=== PATIENT | male | born 1985 | race Caucasian/White ===

== ENCOUNTER 2017-04-23 12:26 | Emergency (ER) | payer BC, OTHER ==
[~2017-04-23 12:26] MED LIST: CEPH500C3 PO; DICL75 PO; HYDR-3533 PO
[2017-04-23 12:31] VITALS: BP 116/59; PULSE 66; RESP 20; TEMP 98.2; O2SAT 98
--- NOTE | 2017-04-23 13:25 | PD ---
HPI Chief Complaint: Back/ Neck Pain or Injury Time Seen by Provider: 13:07 Travel History International Travel<30 days: No Contact w/Intl Traveler<30days: No Traveled to known affect area: No History of Present Illness HPI 31 -year-old male presents emergency department for evaluation of low back pain radiating down into the leg 4 days. Patient reports the pain began after he went off shore fishing. He denies specific injury. Denies fever, chills, incontinence, saddle anesthesia, numbness/weakness/tingling in the extremity. Pain is worse with movement and relieved with rest. He was seen earlier today at a local urgent care clinic and given an injection of Toradol. He was prescribed Flexeril and Motrin which he has not filled. He presented to emergency department for evaluation because his pain persist in spite of Toradol. [facility] Past Medical History Medical History: Denies Significant Hx Diminished Hearing: No ?: Not Past Surgical History Appendectomy: Yes Social History Alcohol Use: Yes (weekends) Tobacco Use: Yes (1 PPD) Substance Use: No Allergies-Medications (Allergen,Severity, Reaction): Coded Allergies: No Known Allergies (Verified , 02/07/15) Reported Meds & Prescriptions Reported Meds & Active Scripts Active Lortab 5 mg/325 mg (Hydrocodone/Acetaminophen 5 mg/325 mg) 1 Tab 1 Tab PO Q6H PRN Diclofenac Sodium 75 Mg Tab 75 Mg PO BID PRN Keflex (Cephalexin Monohydrate) 500 Mg Cap 500 Mg PO BID 7 Days Review of Systems Except as stated in HPI: all other systems reviewed are Neg General / Constitutional: No: Fever Physical Exam Narrative GENERAL: Well-nourished, well-developed patient. SKIN: Focused skin assessment warm/dry. CARDIOVASCULAR: Regular rate and rhythm without murmurs, gallops, or rubs. RESPIRATORY: Breath sounds equal bilaterally. No accessory muscle use. GASTROINTESTINAL: Abdomen soft, non-tender, nondistended. MUSCULOSKELETAL: No cyanosis, or edema. 5 out of 5 strength in lower extremities. 2+ DTRs. Normal sensation. Dorsiflex and plantarflex intact. BACK: Without obvious deformity. No CVA tenderness. No midline spine tenderness. Tender to palpation over the left SI joint and buttocks. Data Data Last Documented VS Vital Signs Date Time Temp Pulse Resp B/P (MAP) Pulse Ox O2 Delivery O2 Flow Rate FiO2 10/4/17 12:31 98.2 66 20 116/59 (66) 98 [facility] Medical Decision Making Medical Screen Exam Complete: Yes Emergency Medical Condition: Yes Differential Diagnosis Lumbar strain, sciatica, herniated disc Narrative Course 31-year-old male presents emergency department for evaluation of left low back pain radiating down into the left leg has 4 days. Patient was seen earlier today in urgent care clinic and given a shot of Toradol. He reports his symptoms have persisted since prompting his visit to the ER. On exam patient has tenderness over the left SI joint and into the buttocks. He has a normal neurologic exam. We'll sensation and range of motion of the lower extremities. Flexion and twisting of the back because pain. He has no saddle anesthesia, incontinence. Patient be given a shot of Norflex and instructed to take the Motrin and Flexeril as prescribed by the urgent care clinic. Patient verbalizes understanding and agrees to plan Diagnosis Primary Impression: Sciatica Qualified Codes: M54.32 - Sciatica, left side Referrals: [facility] Departure Forms: Tests/Procedures, Work Release Enter return to work date: Apr 26, 2017 Disposition: 01 DISCHARGE HOME Condition: Stable [place] Apr 23, 2017 13:25
[2017-04-23] MEDS ORDERED: ORPHENADRINE INJ 60 MG/2 ML AMP IM ONE (13:30)
== END 2017-04-23 14:15 | disposition home or self-care (01) ==
LOC: PHED 12:26
DX: M54.42 Lumbago with sciatica, left side (principal); F17.200 Nicotine dependence, unspecified, uncomplicated
CPT/HCPCS: 96372; 99284; J2360

== ENCOUNTER 2017-05-09 00:36 | Emergency (ER) | payer OTHER ==
[~2017-05-09] VITALS: Ht 180.3 cm; Wt 64.0 kg
[2017-05-09 00:41] VITALS: BP 127/81; PULSE 74; RESP 18; TEMP 98.4; O2SAT 98
--- NOTE | 2017-05-09 02:40 | RADRPT ---
EXAM DATE/TIME: 05/09/2017 02:13 [place] COMPARISON: No previous studies available for comparison. INDICATIONS : Left hip pain for 3 weeks with no known injury MEDICAL HISTORY : None. SURGICAL HISTORY : None. ENCOUNTER: Initial ACUITY: 3 weeks PAIN SCORE: 10/10 LOCATION: Left entire hip FINDINGS: Examination of the left hip was performed with AP Pelvis. The primary and secondary trabecular patte rn of the femoral neck is intact. The hip joint is of normal width without significant sclerosis or bony hypertrophy. The acetabulum is grossly intact. CONCLUSION: No acute fracture. Dwight Sewell MD on May 09, 2017 at 2:38 Board Certified Radiologist. This report was verified electronically.
[2017-05-09] MEDS ORDERED: PERC5TAB12 PO (02:55)
[2017-05-09] MEDS ORDERED: PRED50 PO (02:55)
--- NOTE | 2017-05-09 02:57 | PD ---
HPI Chief Complaint: Musculoskeletal Complaint Time Seen by Provider: 02:02 Travel History International Travel<30 days: No Contact w/Intl Traveler<30days: No Traveled to known affect area: No History of Present Illness HPI The patient is a 31-year-old male that complains of left hip pain since about the third of this month. He did have some back pain that was treated by a chiropractor and the back pain resolved. He has pain on his left greater trochanteric area now which is severe. He has been using Motrin 800 mg 3 times a day for over a week. He is put both ice and heat on it without relief. He denies any injury to the area. He cannot walk and has been missing work. 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 He no longer has any back pain and he doesn't have any radiation of pain from the back. He states he has some tendon tightness/spasms on the muscles that attach to the left greater trochanter. He denies any fever/ chills. PFSH Past Medical History Diminished Hearing: No Tetanus Vaccination: < 5 Years Influenza Vaccination: No Past Surgical History Appendectomy: Yes Social History Alcohol Use: Yes (weekends) Tobacco Use: Yes (1 PPD) Substance Use: No Allergies-Medications (Allergen,Severity, Reaction): Coded Allergies: No Known Allergies (Verified , 05/09/17) Reported Meds & Prescriptions Reported Meds & Active Scripts Active No Active Prescriptions or Reported Medications Review of Systems Except as stated in HPI: all other systems reviewed are Neg Physical Exam Narrative GENERAL: Well-nourished, well-developed patient in moderate apparent distress with his left hip discomfort. His vital signs are normal.. SKIN: Focused skin assessment warm/dry. HEAD: Normocephalic. EYES: No scleral icterus. No injection or drainage. NECK: Supple, trachea midline. No JVD or lymphadenopathy. CARDIOVASCULAR: Regular rate and rhythm without murmurs, gallops, or rubs. RESPIRATORY: Breath sounds equal bilaterally. No accessory muscle use. GASTROINTESTINAL: Abdomen soft, non-tender, nondistended. MUSCULOSKELETAL: No cyanosis, or edema. There is tenderness at and slightly distal to the left greater trochanter. This appears to be in the area of the trochanteric bursa. He has exquisite tenderness on this area but there is no redness, heat over the area. There is no fluctuance over the area. He also has some slight tenderness over the hamstring muscles just above the left knee. BACK: Nontender without obvious deformity. No CVA tenderness. Data Data Last Documented VS Vital Signs Date Time Temp Pulse Resp B/P (MAP) Pulse Ox O2 Delivery O2 Flow Rate FiO2 05/09/17 01:15 74 18 05/09/17 00:41 98.4 127/81 (96) 98 Orders Orders Hip, Uni(Ap&Lat) W Ap Pelvis (05/09/17 02:02) MDM Medical Decision Making Medical Screen Exam Complete: Yes Emergency Medical Condition: Yes Medical Record Reviewed: Yes Differential Diagnosis Trochanteric bursitis, osteomyelitis, stress fracture-highly unlikely, insertional tendinitis Narrative Course The patient appears to have a left trochanteric bursitis. He is already tried Motrin without success. We will try prednisone on a tapered course over 8 days. He needs to follow-up with an orthopedic physician. Diagnosis Primary Impression: Trochanteric bursitis, left hip Additional Instructions: The prednisone is one tablet twice daily for 4 days followed by one tablet daily for 4 days. Do not drink alcohol or drive on the Percocet 5. Follow-up with an orthopedic physician as soon as possible. Med/Other Pt SpecificInfo: Prescription(s) given Scripts Oxycodone-Acetaminophen (Percocet) 5-325 mg Tab 1 TAB PO Q4H Y for PAIN, #15 TAB 0 Refills Prov: Nas Gomez MD 05/09/17 Prednisone (Prednisone) 50 Mg Tab 50 MG PO BID for X 4 days than one daily X 4 da, #12 TAB 0 Refills Prov: Nas Gomez MD 05/09/17 Disposition: 01 DISCHARGE HOME Condition: Stable Nas Gomez MD May 09, 2017 02:56
[2017-05-09] MEDS ORDERED: KETOROLAC TROMETHAMINE 60 MG/2 ML (IM) VIAL IM ONE (03:00)
[2017-05-09] MEDS ORDERED: oxyCODONE/ACETAMINOPHEN 7.5 MG/325 MG TAB PO ONE (03:00)
[2017-05-09 03:11] VITALS: BP 120/77; PULSE 72; RESP 18; O2SAT 98
== END 2017-05-09 03:16 | disposition home or self-care (01) ==
LOC: PHED 00:36
DX: M70.62 Trochanteric bursitis, left hip (principal); F17.210 Nicotine dependence, cigarettes, uncomplicated
CPT/HCPCS: 73502; 96372; 99284; J1885

== ENCOUNTER 2017-08-27 10:10 | Emergency (ER) | payer OTHER ==
[~2017-08-27] VITALS: Ht 182.9 cm; Wt 67.0 kg
[~2017-08-27 10:10] MED LIST changes: -CEPH500C3 PO; -DICL75 PO; -HYDR-3533 PO; +PERC5TAB12 PO; +PRED50 PO
[2017-08-27 10:14] VITALS: BP 130/68; PULSE 87; RESP 16; TEMP 98.2; O2SAT 97
--- NOTE | 2017-08-27 10:35 | PD ---
HPI Chief Complaint: Musculoskeletal Complaint Time Seen by Provider: 10:32 Travel History International Travel<30 days: No Contact w/Intl Traveler<30days: No Traveled to known affect area: No History of Present Illness HPI Patient comes to emergency department complaining of left low back pain rating of left lower extremity that flared up last night. Patient reports history of this is and is waiting to get into pain management. Patient states he originally injured his back while fishing. Describes pain as a burning sensation. Denies any trauma, fevers, IV drug use, numbness or tingling anywhere, loss or change in bowel or bladder. Patient reports he was on Lortabs is out of currently have helped minimally. Patient reports he has been taking ibuprofen using an ice pack for it since it flared up last night. Patient reports he was lying in bed when rolling over and felt a pop sensation causing the pain. Patient is also been using a back brace that helps him ambulate better. PFSH Past Medical History Diminished Hearing: No Musculoskeletal: Yes (Back pain, sciatica) Past Surgical History Appendectomy: Yes Social History Alcohol Use: Yes (weekends) Tobacco Use: Yes (1 PPD) Substance Use: No Allergies-Medications (Allergen,Severity, Reaction): Coded Allergies: No Known Allergies (Verified Adverse Reaction, Unknown, 08/27/17) Reported Meds & Prescriptions Reported Meds & Active Scripts Active Percocet (Oxycodone-Acetaminophen) 5-325 mg Tab 1 Tab PO Q8HR PRN Flexeril (Cyclobenzaprine HCl) 10 Mg Tab 10 Mg PO Q8HR PRN Medrol Dosepak (Methylprednisolone) 4 Mg Dspk 4 Mg PO DIRECTED Per Pharmacist direction Review of Systems Except as stated in HPI: all other systems reviewed are Neg Physical Exam Narrative GENERAL: Well-developed, well nourished, appears uncomfortable, and non-ill appearing. SKIN: Focused skin assessment warm and dry. HEAD: Atraumatic. Normocephalic. EYES: Pupils equal and round. EOMI. No scleral icterus. No injection or drainage. ENT: No nasal bleeding or discharge. Mucous membranes pink and moist. NECK: Trachea midline. Supple. No nuclear rigidity. RESPIRATORY: No accessory muscle use. No respiratory distress. MUSCULOSKELETAL: No obvious deformities. No clubbing. No cyanosis. No edema. Full range of motion. No tenderness or crepitus or midline lumbar spine. Patient reports tenderness to palpation over left SI joint. NEUROLOGICAL: Awake and alert. No obvious cranial nerve deficits. Motor grossly within normal limits. Normal speech. PSYCHIATRIC: Appropriate mood and affect; insight and judgment normal. Data Data Last Documented VS Vital Signs Date Time Temp Pulse Resp B/P (MAP) Pulse Ox O2 Delivery O2 Flow Rate FiO2 08/27/17 10:14 98.2 87 16 130/68 (88) 97 Orders Orders Dexamethasone Inj (Decadron Inj) (08/27/17 11:00) Oxycodone-Acetamin 5-325 Mg (Percocet (08/27/17 11:00) Cyclobenzaprine (Flexeril) (08/27/17 11:00) Ed Discharge Order (08/27/17 12:31) [facility] Medical Decision Making Medical Screen Exam Complete: Yes Emergency Medical Condition: Yes Differential Diagnosis Fracture, strain, sciatica Narrative Course The patient presented complaining of back pain with radiation down leg. There was no history of recent fall or trauma. There was no evidence to support genitourinary etiology. There is also no evidence to suggest vascular pathology such as AAA dissection. No fevers or other evidence to suspect infectious processes, abscess, osteomyelitis etc. The patients neurological exam is normal with normal motor and sensory. There is no saddle paresthesias reported and no bowel or bladder incontinence or retention. I suspect the pain is mechanical in nature with sciatica. Clinical suspicion, plan of care and management was discussed with the patient. The patient was instructed to follow up with their health care provider. The patient was also instructed to return if the pain worsened, changed, or developed weakness or bowel or bladder trouble. The patient agreed with plan. Patient in no obvious distress upon re-evaluation. Patient was asked if they wanted to speak to my attending, which the patient did not wish to do at this time. Any questions/concerns in reference to patient diagnosis/condition discussed and clarified prior to patient's discharge. Reinforced sheer importance of close follow up with patient's primary physician or primary care clinic. Instructed patient to return to ED immediately, if symptoms return/ worsen. Patient showed understanding of above instructions. Further instructions and recommendations were detailed in discharge paperwork. Patient ambulated without difficulty out of ED at discharge. Diagnosis Primary Impression: Sciatica of left side Referrals: [facility] Patient Instructions: General Instructions, Sciatica (ED) Additional Instructions: Follow-up with your primary care physician and/or pain management as soon as possible for reevaluation. Take all medication as prescribed. Return to the emergency department if symptoms get worse. Med/Other Pt SpecificInfo: Prescription(s) given Scripts Oxycodone-Acetaminophen (Percocet) 5-325 mg Tab 1 TAB PO Q8HR Y for PAIN GREATER THAN 7, #7 TAB 0 Refills Prov: Damien Johnson MD 08/27/17 Cyclobenzaprine (Flexeril) 10 Mg Tab 10 MG PO Q8HR Y for MUSCLE PAIN, #15 TAB 0 Refills Prov: Damien Johnson MD 08/27/17 Methylprednisolone Dosepak (Medrol Dosepak) 4 Mg Dspk 4 MG PO DIRECTED, #1 DSPK 0 Refills Per Pharmacist direction Prov: Damien Johnson MD 08/27/17 Disposition: 01 DISCHARGE HOME Condition: Stable Francisco Case Aug 27, 2017 10:35
[2017-08-27] MEDS ORDERED: DEXAMETHASONE SOD PHOS 20 MG/5 ML VIAL IM ONE (11:00)
[2017-08-27] MEDS ORDERED: oxyCODONE/ACETAMINOPHEN 5 MG/325 MG TAB PO ONE (11:00)
[2017-08-27] MEDS ORDERED: CYCLOBENZAPRINE HCL 10 MG TAB PO ONE (11:00)
[2017-08-27] MEDS ORDERED: CYCL10TA PO (12:21)
[2017-08-27] MEDS ORDERED: PERC5TAB12 PO (12:21)
[2017-08-27] MEDS ORDERED: MEDR4PAK PO (12:21)
== END 2017-08-27 12:37 | disposition home or self-care (01) ==
LOC: PHED 10:10 → PHEFT 12:37
DX: M54.32 Sciatica, left side (principal); F17.210 Nicotine dependence, cigarettes, uncomplicated; X58.XXXA Exposure to other specified factors, initial encounter
CPT/HCPCS: 96372; 99283; J1100

== ENCOUNTER 2017-08-31 07:53 | Emergency (ER) | payer OTHER ==
[~2017-08-31] VITALS: Ht 182.9 cm; Wt 68.0 kg
[~2017-08-31 07:53] MED LIST changes: +CYCL10TA PO; +MEDR4PAK PO; -PRED50 PO
[2017-08-31 07:55] VITALS: BP 135/74; PULSE 104; RESP 15; TEMP 97.7; O2SAT 100
[2017-08-31] MEDS ORDERED: MORPHINE SULFATE 4 MG/ML INJ IM ONE (09:45)
[2017-08-31] MEDS ORDERED: DIAZ10 PO (09:45)
[2017-08-31] MEDS ORDERED: NABU1TAB37 PO (09:45)
[2017-08-31] MEDS ORDERED: LORazepam 2 MG/ML VIAL IM ONE (09:45)
--- NOTE | 2017-08-31 09:47 | PD ---
HPI . Sciatica Chief Complaint: Back/ Neck Pain or Injury Time Seen by Provider: 09:23 Travel History International Travel<30 days: No Contact w/Intl Traveler<30days: No Traveled to known affect area: No History of Present Illness HPI This patient presents with a chief complaint of sciatica. This is an ongoing problem for him. He was most recently seen here on 08/27 for same and given prescriptions for Percocet, Flexeril and a Medrol Dosepak. He reports that he has not taken the Percocet. He does not like the way that makes him feel. He has completed a Medrol Dosepak. He has also been taking the Flexeril. He states that he felt better for the next several days. However, he rolled over in his sleep last night and felt a pop in his left hip area. He then had acutely and markedly increased pain. He describes the pain as spasms and rates it 10/10. He denies any bowel or bladder incontinence or urinary retention. He denies any saddle anesthesia. He denies any lower extremity weakness. [facility] Past Medical History Anxiety: Yes Depression: Yes Diminished Hearing: No Musculoskeletal: Yes (Back pain, sciatica) Past Surgical History Appendectomy: Yes Social History Alcohol Use: Yes (weekends) Tobacco Use: Yes (1 PPD) Substance Use: No Allergies-Medications (Allergen,Severity, Reaction): Coded Allergies: No Known Allergies (Verified Adverse Reaction, Unknown, 08/31/17) Reported Meds & Prescriptions Reported Meds & Active Scripts Active Percocet (Oxycodone-Acetaminophen) 5-325 mg Tab 1 Tab PO Q8HR PRN Flexeril (Cyclobenzaprine HCl) 10 Mg Tab 10 Mg PO Q8HR PRN Medrol Dosepak (Methylprednisolone) 4 Mg Dspk 4 Mg PO DIRECTED Per Pharmacist direction Review of Systems Except as stated in HPI: all other systems reviewed are Neg General / Constitutional: No: Fever, Chills Genitourinary: No: Incontinence Musculoskeletal: Positive: Pain Neurologic: No: Weakness, Focal Abnormalities, Paresthesia, Incontinence Physical Exam Narrative GENERAL: Patient is lying on the stretcher on his right side crying. SKIN: Warm and dry. HEAD: Normocephalic/atraumatic. EYES: Pupils are equal. Extraocular movements are intact. NECK: Normal range of motion. Distally RESPIRATORY: Nonlabored respirations. MUSCULOSKELETAL: Tenderness in the left buttock and posterior lateral thigh. NEUROLOGICAL: Nonfocal. PSYCHIATRIC: Appropriate mood and affect. Data Data Last Documented VS Vital Signs Date Time Temp Pulse Resp B/P (MAP) Pulse Ox O2 Delivery O2 Flow Rate FiO2 08/31/17 07:55 97.7 104 15 135/74 (94) 100 Orders Orders Lorazepam Inj (Ativan Inj) (08/31/17 09:45) Morphine Inj (Morphine Inj) (08/31/17 09:45) MDM Medical Decision Making Medical Screen Exam Complete: Yes Emergency Medical Condition: Yes Medical Record Reviewed: Yes (patient was seen here on prescriptions for Percocet, Flexeril and Medrol Dosepak. I have queried e-forcse. It does not appear that he had the Percocet filled. His last filled narcotic was on 08/11 for hydrocodone 7.5 #60 prescribed by Drew Valdez M.D. his prior narcotic prescription was filled on 05/09 and was for Percocet 5 mg #[address] Gomez.) Differential Diagnosis Differential diagnosis of leg pain includes but is not limited to lumbar radiculopathy, arthritis, myalgias, DVT, ruptured Monroe's cyst. Narrative Course This patient presents with acute exacerbation of chronic sciatica. I will give him a shot of morphine and Ativan. Discharge him with prescriptions for Relafen and Valium. He is requesting a referral to a "specialist." I will give him the names of the neurosurgeon and orthopedics ironmolder. Diagnosis Primary Impression: Sciatica Qualified Codes: M54.32 - Sciatica, left side Referrals: Austyn Manzanares MD, Brittney Lewis MD Patient Instructions: General Instructions, Narcotic given in the ED, Sciatica (DC) Med/Other Pt SpecificInfo: Prescription(s) given Scripts Diazepam (Valium) 10 Mg Tab 10 MG PO TID Y for muscle spasm, #15 TAB 0 Refills Prov: Abbie Martínez MD 08/31/17 Nabumetone (Nabumetone) 500 Mg Tab 500 MG PO BID for Pain-Inflammation, #60 TAB 0 Refills Prov: Abbie Martínez MD 08/31/17 Disposition: DISCHARGE HOME Condition: Stable Abbie Martínez MD Aug 31, 2017 09:47
[2017-08-31 10:42] VITALS: RESP 20
== END 2017-08-31 10:51 | disposition home or self-care (01) ==
LOC: NEPD 07:53
DX: M54.32 Sciatica, left side (principal); F17.200 Nicotine dependence, unspecified, uncomplicated; F41.9 Anxiety disorder, unspecified; F32.9 Major depressive disorder, single episode, unspecified
CPT/HCPCS: 96372; 99283; J2270